=== PATIENT | female | born 1990 | race Caucasian/White ===

== ENCOUNTER 2023-04-25 11:50 | Inpatient (IN) ==
[2023-04-25] MEDS ORDERED: Buffered Lidocaine 1% SYRIN 1 ml INTRADERM ONE (13:17)
[2023-04-25] MEDS ORDERED: Lactated Ringers 1000 ml BAG 1,000 ML IV ONE (13:17)
[2023-04-25] MEDS ORDERED: Lidocaine 1% VIAL 10 MG/ML 30 ML VIAL INJ PRN (13:17)
[2023-04-25] MEDS ORDERED: Penicillin G Potassium IV 5,000,000 UNITS in NS 0.9% 100 ml BAG 100 ML IVPB ONE (13:17)
[2023-04-25 13:20] LABS: Urine Appearance Cloudy; Urine Bilirubin Negative (Negative); Urine Blood Negative (Negative); Urine Color Yellow; Urine Glucose Negative (Negative); Urine Ketones Negative (Negative); Urine Nitrite Negative (Negative); Urine Protein Negative (Negative); Urine Specific Gravity 1.012 (1.002-1.030); Urine Urobilinogen Negative (Negative)
[2023-04-25 13:23] LABS: Urine Bacteria 1+ (Absent); Urine Red Blood Cell Trace(0-2/hpf) (Absent); Urine Squamous Epithelial Cell Present (Absent); Urine White Blood Cell 1+(6-10/hpf) (Absent)
[2023-04-25 13:36] LABS: Urine Benzodiazepine Screen None Detected (None Detect); Urine Opiates Screen None Detected (None Detect)
[2023-04-25] MEDS ORDERED: Lactated Ringers 1000 ml BAG 1,000 ML IV SCH (14:00)
[2023-04-25 15:21] LABS: ABS Basophils 0.1 10^3/uL (0.0-0.1); ABS Eosinophils 0.1 10^3/uL (0.0-0.5); ABS Lymphocytes 1.9 10^3/uL (1.0-4.8); ABS Monocytes 0.7 10^3/uL (0.0-0.9); ABS Neutrophils 5.5 10^3/uL (1.5-7.6); ABS Nucleated RBC 0.01 10^3/ul; Eosinophil % 1.7 %; Hematocrit 34.2 % (35-45); Hemoglobin 11.7 g/dL (11.5-14.3); Lymphocyte % 22.6 %; Mean Corpuscular Hemoglobin 30.9 pg (27-33); Mean Corpuscular Hgb Conc 34.1 g/dL (31-36); Mean Corpuscular Volume 90.8 fL (80-97); Mean Platelet Volume 9.5 fL (7.5-11.2); Nucleated Red Blood Cells % 0.1 %/100WBC (0.0-0.8); Platelet Count 215 10^3/uL (150-450); Red Blood Count 3.77 10^6/uL (3.63-4.92); Red Cell Distribution Width 13.5 % (12-17); White Blood Count 8.3 10^3/uL (3.8-11.8)
[2023-04-25] MEDS: Penicillin G Potassium IV 3,000,000 UNITS in NS 0.9% 100 ml BAG 100 ML IVPB SCH ×2 (17:48→22:26)
[2023-04-26] MEDS: Penicillin G Potassium IV 3,000,000 UNITS in NS 0.9% 100 ml BAG 100 ML IVPB SCH ×5 (02:36→19:39)
[2023-04-26] MEDS ORDERED: Oxytocin in LR 20,000 MILLI.UNIT/1,000 ML BAG IV SCH (12:20)
[2023-04-26] MEDS ORDERED: Dibucaine 1% OINT 28.35 GM TUBE PR PRN (18:52)
[2023-04-26] MEDS ORDERED: Witch Hazel PAD JAR TOPICAL PRN (18:52)
[2023-04-26] MEDS ORDERED: Glycerin ADULT 2.4 gm SUPP PR PRN (18:52)
[2023-04-27 07:19] LABS: ABS Eosinophils 0.1 10^3/uL (0.0-0.5); ABS Lymphocytes 1.8 10^3/uL (1.0-4.8); ABS Neutrophils 8.7 10^3/uL (1.5-7.6); ABS Nucleated RBC 0.01 10^3/ul; Eosinophil % 0.6 %; Hemoglobin 10.6 g/dL (11.5-14.3); Lymphocyte % 15.6 %; Mean Corpuscular Hemoglobin 30.9 pg (27-33); Mean Corpuscular Hgb Conc 34.2 g/dL (31-36); Mean Corpuscular Volume 90.5 fL (80-97); Mean Platelet Volume 8.8 fL (7.5-11.2); Nucleated Red Blood Cells % 0.1 %/100WBC (0.0-0.8); Platelet Count 203 10^3/uL (150-450); Red Blood Count 3.43 10^6/uL (3.63-4.92); Red Cell Distribution Width 13.6 % (12-17); White Blood Count 11.6 10^3/uL (3.8-11.8)
[2023-04-27] MEDS: Docusate LIQ 100 MG/10 ML UDC PO SCH ×2 (11:15→14:00)
[2023-04-27] MEDS: Calcium Carb (TUMS) 500 mg CHEW TAB PO PRN (23:54)
[2023-04-28] MEDS: Docusate LIQ 100 MG/10 ML UDC PO SCH ×3 (04:58→14:00)
[2023-04-28] MEDS: Calcium Carb (TUMS) 500 mg CHEW TAB PO PRN (05:45)
[2023-04-28 08:12] VITALS: BP 117/59
[2023-04-28] MEDS ORDERED: Measles, Mumps,Rubella VACC 0.5 ML/VIAL SUBCUT ONE (12:39)
== END 2023-04-28 17:06 | disposition home or self-care (01) | DRG 807 ==
LOC: MCHOBOUT 11:50 → MCHOB 13:12
PROVIDERS: ADMIT Registered Nurse; ATTEND Midwife